=== PATIENT | male | born 1960 | race Caucasian/White ===

== ENCOUNTER → 2024-04-17 | Outpatient (CLI) | payer BC | LOC: M RAD 11:43 | PROVIDERS: ATTEND Physician Assistant | DX: M67.441 Ganglion, right hand (principal) ==

== ENCOUNTER 2024-06-11 10:53 | Day surgery (SDC) | payer BC ==
[~2024-06-11] VITALS: Ht 185.4 cm; Wt 99.5 kg
[~2024-06-11 10:53] MED LIST: BIOT1000 PO; CHOL50003 PO; LOSA50TA28 PO; NS 250 ML IV ONE
[2024-06-11 12:07] VITALS: BP 141/92; O2SAT 97
== END 2024-06-11 12:08 | disposition home or self-care (01) ==
LOC: M OPP 10:53
PROVIDERS: ATTEND Surgery
DX: Z12.11 Encounter for screening for malignant neoplasm of colon (principal); D12.6 Benign neoplasm of colon, unspecified; K57.30 Diverticulosis of large intestine without perforation or abscess without bleeding; K64.2 Third degree hemorrhoids; Z79.899 Other long term (current) drug therapy

== ENCOUNTER 2024-11-26 09:49 | Day surgery (SDC) | payer BC ==
[~2024-11-26] VITALS: Ht 185.4 cm; Wt 99.8 kg
[~2024-11-26 09:49] MED LIST changes: -BIOT1000 PO; +BIOT10002 PO; +MINO2.5T PO; -NS 250 ML IV ONE; +PHENYLEPHRINE 10% OPHTH SOL 5ML OS PRN; +ROSU10TA61 PO
[2024-11-26] MEDS: OFLOXACIN 0.3 % (OCUFLOX) OPTH SOL 5ML OS ONE (11:15)
[2024-11-26] MEDS: CYCLOPENTOLATE 1% OPHTH SOLN 2 ML BTL OS SCH (11:24)
[2024-11-26] MEDS: LIDOCAINE 3.5% 1 ML OPHTH TOPICAL GEL OU ONE (11:24)
[2024-11-26] MEDS: PHENYLEPHRINE 2.5% OPHTH SOL 2ML OS SCH (11:24)
[2024-11-26] MEDS: TROPICAMIDE 1% OPHTH SOLN 15ML OS SCH (11:24)
[2024-11-26] MEDS ORDERED: MIDAZOLAM INJ 2 MG/2 ML VIAL As Ordered ONE (11:38)
[2024-11-26] MEDS: BSS IRRIG/VANCO(10MG)/TOBRA(5MG)/EPINEPH(1:1000-0.5CC)500ML BAG-ORONLY As Ordered ONE (12:13)
[2024-11-26] MEDS: LIDOCAINE 1% SDV 5 ML VIAL As Ordered ONE (12:13)
[2024-11-26] MEDS: CEFUROXIME 1 MG/0.1 ML INTRACAMERAL INJ As Ordered ONE (12:17)
[2024-11-26 12:25] VITALS: BP 124/70; TEMP 98.2; O2SAT 95
== END 2024-11-26 12:50 | disposition home or self-care (01) ==
LOC: M SDC 09:49
PROVIDERS: ATTEND Ophthalmology
DX: H25.12 Age-related nuclear cataract, left eye (principal); I10 Essential (primary) hypertension; E78.00 Pure hypercholesterolemia, unspecified; Z79.899 Other long term (current) drug therapy; Z98.41 Cataract extraction status, right eye; Z90.49 Acquired absence of other specified parts of digestive tract
CPT/HCPCS: 66984; J0697; J2250; J3010; V2632